=== PATIENT | female | born 1955 | race Caucasian/White ===

== ENCOUNTER → 2017-01-04 | Day surgery (SDC) | payer OTHER ==
[2016-12-11 11:30] VITALS: BMI 37.0
--- NOTE | 2016-12-11 11:59 | PAT Medication Instructions ---
Service Date December 11, 2016. Current Home Medication List Clonazepam (Klonopin), 1 MG PO HS PRN for Sleep Clonazepam (Klonopin), 0.5 TAB PO BID PRN for Anxiety/Agitation Cyclobenzaprine Hcl (Flexeril), 5 MG PO TID PRN for Muscle Spasms Digestive Enzymes (Digestive Support), 1 TAB PO QAM Oxycodone/Acetaminophen 10MG/325MG (Percocet 10MG/325MG), 1 TAB PO Q6H PRN for Pain Pantoprazole (Protonix), 40 MG PO QAM Venlafaxine Hcl (Effexor Extended Rel), 150 MG PO QAM Medication Instructions For Your Scheduled Surgery - Hold the following medications the morning of surgery: Cyclobenzaprine Hcl (Flexeril), 5 MG PO TID PRN for Muscle Spasms Digestive Enzymes (Digestive Support), 1 TAB PO QAM - Take the following medications the morning of surgery with a sip of water OTHERWISE NOTHING TO EAT OR DRINK AFTER MIDNIGHT: Clonazepam (Klonopin), 0.5 TAB PO BID PRN for Anxiety/Agitation Pantoprazole (Protonix), 40 MG PO QAM Venlafaxine Hcl (Effexor Extended Rel), 150 MG PO QAM Oxycodone/Acetaminophen 10MG/325MG (Percocet 10MG/325MG), 1 TAB PO Q6H PRN for Pain (may take if needed up to 4 hours prior to surgery) - Take the following medications as scheduled the night before surgery: Clonazepam (Klonopin), 1 MG PO HS PRN for Sleep Clonazepam (Klonopin), 0.5 TAB PO BID PRN for Anxiety/Agitation Cyclobenzaprine Hcl (Flexeril), 5 MG PO TID PRN for Muscle Spasms Oxycodone/Acetaminophen 10MG/325MG (Percocet 10MG/325MG), 1 TAB PO Q6H PRN for Pain If you have any questions please call us at [phone] or [phone] or [phone]
[2016-12-11 12:00] LABS: BASO % 0.4 %; BASO ABS # 0.02 K/uL (0-0.2); COMPLETE YES; EOS % 4.8 %; HEMATOCRIT 44.1 % (37-47); IG% 0.2 %; LYMPH % 32.1 %; LYMPH ABS # 1.54 K/uL (1.2-3.4); MEAN CELL VOLUME 93.2 fL (80-100); MEAN CORPUSCULAR HEMOGLOBIN 33.4 pg (25-34); MEAN CORPUSCULAR HGB CONC 35.8 g/dl (32-36); MEAN PLATELET VOLUME 10.6 fL (7.4-10.4); MONO % 6.3 %; NEUT % 56.2 %; PLATELET COUNT 156 K/uL (130-400); RED BLOOD COUNT 4.73 M/uL (4.2-5.4)
[2016-12-11 12:15] LABS: URINE APPEARANCE CLEAR (CLEAR); URINE BILIRUBIN NEG (NEG); URINE COLOR YELLOW; URINE NITRITE NEG (NEG); URINE PH 5.5 (4.5-7.5); URINE SPECIFIC GRAVITY 1.014 (1.000-1.030); UROBILINOGEN NEG (NEG)
[2016-12-11 12:25] LABS: MANUAL MICROSCOPIC REQUIRED? NO; REVIEW REQ? NO
[2016-12-11 13:03] LABS: BUN/CREATININE RATIO 23.3 (10-20); CREATININE 0.67 mg/dl (0.60-1.20); POTASSIUM 4.2 mmol/L (3.5-5.1)
--- NOTE | 2017-01-03 14:55 | HISTORY & PHYSICAL EXAMINATION ---
DATE OF ADMISSION: 01/04/2017 SUBJECTIVE CHIEF COMPLAINT: Right shoulder pain. HISTORY OF PRESENT ILLNESS: The patient is a 61-year-old female who is here for right shoulder pain. She presents with pain symptoms as chronic and nontraumatic. They occur constantly. She describes the pain as being aching, sharp and throbbing at times. The patient had a previous MRI that demonstrated a full thickness tear of the rotator cuff. She would like to proceed with a right shoulder rotator cuff repair and subacromial decompression. PAST MEDICAL HISTORY: Significant for acid reflux, arthritis, COPD, depression, fibromyalgia, GERD, and rheumatoid arthritis. PAST SURGICAL HISTORY: Hysterectomy, right ACL reconstruction, , bilateral carpal tunnel release, appendectomy, cholecystectomy, tonsillectomy. SOCIAL HISTORY: She denies alcohol use. She was a 1 pack a day smoker for 35 years. She quit 1 month ago. She denies IV drug use. She lives in a 1-story house. She is currently retired. FAMILY HISTORY: Mom and dad have a history of heart disease. ALLERGIES: CELEBREX, MORPHINE, FENTANYL, TORADOL, ISOSORBIDE, VICODIN, COMPAZINE. MEDICATIONS: Cyclobenzaprine 5 mg 3 times daily, Effexor 150 mg 1 tab daily, Protonix 40 mg 1 tab daily, Klonopin 0.5 mg twice a day and 1 mg at night, Percocet 10/325 1-2 tabs every 4-6 hours as needed for pain, Digestive Advantage 215 million cell chewable tablet. REVIEW OF SYSTEMS: She denies headaches, fevers, chills, double vision, blurry vision, sore throat, cough, chest pain, nausea, vomiting, diarrhea, constipation, numbness, tingling, tired, urinary difficulties, thoughts to harm himself or harm others and depression. She is positive for joint pain and stiffness of her right shoulder. OBJECTIVE PHYSICAL EXAMINATION: GENERAL APPEARANCE: The patient is a 61-year-old female that is sitting in no acute distress. She is well dressed, well nourished. She is awake, alert and oriented x3. VITAL SIGNS: She is 5 foot 6 inches tall, 224 pounds, blood pressure is 130/80. HEAD, EYES, EARS, NOSE, AND THROAT: Normocephalic, atraumatic. Extraocular movements are intact. PERRLA. Mucosa was moist. No septal deviation. NECK: Supple with no lymphadenopathy, no JVD, no thyromegaly. HEART: Regular rate and rhythm with no murmurs or gallops. LUNGS: Wheezing bilaterally, diffuse throughout the lung areas. ABDOMEN: Soft, nontender, nondistended. Normal bowel sounds, no hepatosplenomegaly. EXTREMITIES: Paying particular attention to the right upper extremity, she is able to actively flex to 90 degrees, abduct to 90 degrees, externally rotate to 75 degrees. She has diffuse tenderness throughout the shoulder. NEUROLOGIC EXAMINATION: Cranial nerves II-XII were intact. Pulses were compared bilaterally and were equal. IMAGING: MRI of the right shoulder demonstrated a full thickness tear of the supraspinatus component of the rotator cuff approximately 2 cm from the greater tuberosity insertion. IMPRESSION: Right shoulder rotator cuff tear. PLAN: The patient is scheduled for a right shoulder rotator cuff repair, subacromial decompression. The patient has failed conservative therapies which include cortisone injections, anti-inflammatories and physical therapy. She would like to proceed with a right shoulder rotator cuff repair, subacromial decompression. Risks and benefits were discussed with the patient. They included but not limited to infection, DVT, pain, stiffness, need for revision surgeries, failure to relieve all symptoms, retear, damage to blood vessels, damage to nerves, risks of anesthesia and decreased range of motion were all discussed with the patient and she wishes to proceed. All questions were answered to her satisfaction. No DVT prophylaxis is needed. On discharge she will be going home with self care provided that her oxygenation levels are okay after her operation and pain is well controlled.
[~2017-01-04] VITALS: Ht 165.1 cm; Wt 102.5 kg
[~2017-01-04] MED LIST: ATROPINE SULFATE 0.1 MG/ML 5ML SYR IV PRN; BUPIVACAINE 0.5 % 5 MG/1 ML MPF 30ML VIAL ONE; BUPIVACAINE 0.5 % 5 MG/1 ML PF 10ML VIAL ONE; CEFAZOLIN 2000 MG/60 ML D5W 60 ML IV SCH; CLON1TAB PO; CLON1TAB3 PO; CLONIDINE HCL 100 MCG/ML SYRINGE ONE; CYCL5TAB PO; DEXAMETHASONE SOD INJ 4 MG/ML VIAL ONE; DIGECAP23 PO; DiphenhydrAMINE HCL 50 MG/ML VIAL ONE; EpHEDrine SULFATE INJ 50 MG/ML AMP IV PRN; EpHEDrine SULFATE INJ 50 MG/ML AMP ONE; EpINEphrine HCL INJ 1 MG/ML 5ML SYRINGE ONE; FENTANYL CITRATE INJ 50 MCG/1 ML 2 ML VIAL ONE; KETAMINE HCL INJ 50 MG/ML 10 ML VIAL ONE; LACTATED RINGER'S 1000ML 1,000 ML IV SCH; LIDOCAINE HCL 2% 2 ML VIAL (20MG/ML) ONE; LIDOCAINE/EPINEPHRINE 1% 20 ML VIAL ONE; MEPIVACAINE HCL 1.5% 30 ML VIAL ONE; MIDAZOLAM HCL 1 MG/ML 2ML VIAL ONE; MoRPHine SULFATE 4 MG/ML 1 ML CARP\\VIAL IV PRN; ONDANSETRON INJ 2 MG/ML 2 ML VIAL IV PRN; ONDANSETRON INJ 2 MG/ML 2 ML VIAL ONE; OXYC-106 PO; OXYC-57 PO; OXYCODONE/ACETAMINOPHEN 5-325 TAB ONE; OXYCODONE/ACETAMINOPHEN 5-325 TAB PO PRN; OXYSR10 PO; PANT40TA PO; PHENYLEPHRINE 100MCG/ML 5ML SYR ONE; PROPOFOL IV EMULSION 10 MG/ML 20 ML VIAL IV ONE; SUCCINYLCHOLINE 100MG/5ML SYR IV ONE; VENL150C56 PO
[2017-01-04 13:05] VITALS: BP 149/97; PULSE 80; TEMP 36.7; O2SAT 96; Ht 165.1 cm; Wt 102.5 kg
--- NOTE | 2017-01-04 13:22 | History & Physical Bridge Note ---
H&P Re-Evaluation Bridge Note: I have examined the patient, reviewed the History & Physical and in the interval since the performance of the History & Physical I have noted the following changes of clinical significance: No changes noted
[2017-01-04 13:37] LABS: PARTIAL THROMBOPLASTIN RATIO 1.1; PROTHROMBIN TIME (PATIENT) 11.1 SECONDS (9.0-12.0)
--- NOTE | 2017-01-04 17:55 | Discharge Instructions ---
Discharge Instructions Date of Service January 04, 2017. Admission Reason for Admission: Right Shoulder Rotator Cuff Tear Discharge Discharge Diagnosis / Problem: S/P Right shoulder RCR, SAD, Biceps tenodesis, removal loose bodies Discharge Goals Goal(s): Decrease discomfort, Improve function Activity Recommendations Activity Limitations: per Instructions/Follow-up section . Instructions / Follow-Up Instructions / Follow-Up [facility] DISCHARGE INSTRUCTIONS: ROTATOR CUFF REPAIR SELF CARE INSTRUCTIONS A. You are permitted to loosen your sling/immobilizer to move your elbow, wrist , and hand to prevent stiffness. You should use your well arm (good arm) to assist the operated extremity when trying to raise the arm away from the body, hygiene purposes. Do NOT actively try to use/engage your shoulder muscles in operative arm at this time. You should NOT do overhead activity, lifting, or attempt to reach behind your back. B. You will wait to start start Physical Therapy until you follow up appointment in the office 2 weeks from the date of your surgery due to the size of your rotator cuff tear. C. At 48 hours post-operatively, you may change your dressing. (Leave white steri-strips intact if present). Use band-aids and change daily. You are allowed to shower at this time and get the incision area wet, but DO NOT soak or submerge incision area in water. (No baths, swimming pools, hot tubs) D. Do NOT apply soap or any ointment/lotions directly over incision. E. You may use ice as needed to operative shoulder SPECIAL CARE INSTRUCTIONS: VERY IMPORTANT TO READ AND REVIEW A. There are a few signs you need to watch for after you are home. Call [facility] at [phone] if you experience any of the following: a. Increased severe shoulder pain. Some pain is expected especially when you exercise b. Increased swelling in your shoulder or arm; pain or swelling in either upper extremity. (Note: swelling and stiffness is normal and expected for several weeks post op, depending on type of shoulder surgery you had). c. Any fluid or drainage from the incision; redness of the incision. d. Shortness of breath or chest pain. B. Please call [facility] at [phone] if you have any questions or concerns about your operation or recovery. C. Call your physician if: a. Temperature is greater than 101 degrees (F). b. Pain is not relieved by prescribed pain medications. c. Increase drainage or redness from incision. d. Unanswered questions or concerns. D. Pain Medication: a. You will be prescribed pain medication upon discharge that should last till your first post-operative appointment. b. If you experience nausea and/or skin rash, discontinue this medication and contact our office for an alternative medication. c. Caution- narcotic pain medication can cause constipation. FOLLOW UP VISIT: Please call [facility] at [phone] to schedule a follow up appointment 10-14 days from your surgery date. Current Hospital Diet Patient's current hospital diet: Regular Diet Discharge Diet Recommended Diet: Regular Diet Procedures Procedures Performed: Right shoulder arthroscopy,rotator cuff repair, subacromial decompression, bicep tendotomy, removal loose bodies, extensive debridement. Pending Studies Studies pending at discharge: no Medical Emergencies . Who to Call and When: Medical Emergencies: If at any time you feel your situation is an emergency, please call 911 immediately. . Non-Emergent Contact Non-Emergency issues call your: Surgeon Call Non-Emergent contact if: temperature is above 101.5, your pain is worsening, wound has increased drainage, wound has increased redness . "Provider Documentation" section prepared by Pierre Tate. . VTE Core Measure Inpt VTE Proph given/why not?: Treatment not indicated [place] Drug Monitoring Program Search Results: patient reviewed within database, no issues identified
--- NOTE | 2017-01-04 18:22 | Anesthesiology Progress Note ---
Anesthesia Post Op Note Date & Time January 04, 2017 at 18:22 Vital Signs Pain Intensity: 0 Vital Signs Past 12 Hours Date Time Temp Pulse Resp B/P Pulse Ox O2 Delivery O2 Flow Rate FiO2 01/04/17 18:00 36.4 77 16 125/81 100 Mask 10 01/04/17 17:50 36.4 70 16 136/72 100 Mask 10 01/04/17 17:43 36.4 72 16 157/65 100 Mask 10 01/04/17 13:05 36.7 80 22 149/97 96 Room Air Notes Mental Status: alert / awake / arousable, participated in evaluation Pt Amnestic to Procedure: Yes Nausea / Vomiting: adequately controlled Pain: adequately controlled Airway Patency, RR, SpO2: stable & adequate BP & HR: stable & adequate Hydration State: stable & adequate Anesthetic Complications: no major complications apparent
[2017-01-04 18:32] VITALS: BP 140/90; PULSE 71; TEMP 36.6; O2SAT 94
[2017-01-04 19:00] VITALS: BP 144/78; PULSE 74; O2SAT 94
[2017-01-04 19:30] VITALS: BP 171/79; PULSE 65; TEMP 36.6; O2SAT 95
--- NOTE | 2017-02-04 10:36 | OPERATIVE REPORT ---
DATE OF OPERATION: 01/04/2017 PREOPERATIVE DIAGNOSIS: Right shoulder rotator cuff tear, impingement, biceps tear, labral tear, synovitis. POSTOPERATIVE DIAGNOSIS: Same plus loose bodies. PROCEDURES: Right shoulder rotator cuff repair, subacromial decompression, biceps tenotomy, extensive debridement and removal of loose bodies. SURGEON: Dr. Chapa. ACETYLENE BURNER: Pierre Tate PA-C who was necessary for assistance of procedure with positioning, prepping, draping, retraction, suture passage and closure. ANESTHESIA: General endotracheal anesthesia with interscalene block. SPECIMENS: None. COMPLICATIONS: None. ESTIMATED BLOOD LOSS: Minimal. INDICATIONS: The patient is a 61-year-old female with long-standing pain in the right shoulder. MRI demonstrated tear of the rotator cuff. She previously failed conservative measures and she wished to proceed with arthroscopy. Risks, benefits, and alternatives of surgery including but not limited to infection, DVT, pain, stiffness, need for further surgery, failure to relieve all symptoms, damage to blood vessels, damage to nerves, risks of anesthesia were discussed with the patient and she wished to proceed. OPERATION AND FINDINGS: PROCEDURE: The patient was identified, laterality was confirmed and marked. She received a preoperative antibiotic as well as interscalene block. She was transferred to the operating room, placed in supine position, induced with general endotracheal. She was then safely transferred to lateral decubitus position, secured by matias bag and axillary roll was placed. All pressure points were well padded. Limb was placed in 10 pounds of lateral traction and then prepped and draped in usual sterile manner with ChloraPrep. I made a standard posterior viewing portal made through a stab incision, bluntly entered the glenohumeral joint and under spinal localization established anterior superior lateral portal. She had degenerative tearing of the anterior, superior, and posterior aspect of the glenoid labrum. This was debrided back to a stable base utilizing a shaver. She had significant tearing of the long head of the biceps tendon constituting greater than 50% thickness of the tendon. The tendon was released utilizing a cautery wand. She had several loose bodies within the glenohumeral joint, largest measuring 4 mm x 5 mm. These were removed with a combination of shaver as well as an arthroscopic grasper. She had significant degenerative change of the cartilage of the glenoid and some degenerative change of cartilage of the humeral head. All the instrumentation was removed from the joint. I then entered the subacromial space and established a lateral portal. She had full thickness rotator cuff tear in the region of the supraspinatus. I debrided the tissue back to good healthy tissue and debrided the footprint to establish a bleeding response. Then through a stab incision, I placed a 5.5 mm Healicoil suture anchor. She had relatively soft bone. The sutures were passed in a horizontal mattress fashion with a scorpion and then tied from posterior to anterior utilizing sliding Blair knots reinforced with 3 half hitches on alternating posts. I then took one suture limb from each knot cutting the remaining suture limbs placed into a 5.5 mm footprint anchor that I placed anterolaterally completing a double row construct. I then released the CA ligament with cautery and performed a subacromial decompression, first removing the anterior inferior spur from laterally and then completing a cutting block technique. All the instrumentation was then removed from the shoulder. Portal sites were closed with nylon. Sterile dressing was applied. All needle and sponge counts were correct at the end of the procedure. The patient was transferred to the PACU in stable condition without apparent complication. Plan will be to hold physical therapy for 2 weeks due to her poor tissue quality. I attest to the content of the Intraoperative Record and any orders documented therein. Any exception s are noted below.
== END | disposition home or self-care (01) ==
LOC: C.ACU 12:46
PROVIDERS: ATTEND Orthopaedic Surgery
DX: M75.101 Unspecified rotator cuff tear or rupture of right shoulder, not specified as traumatic (principal); M25.811 Other specified joint disorders, right shoulder; S46.201A Unspecified injury of muscle, fascia and tendon of other parts of biceps, right arm, initial encounter; M65.811 Other synovitis and tenosynovitis, right shoulder; X58.XXXA Exposure to other specified factors, initial encounter; J44.9 Chronic obstructive pulmonary disease, unspecified; M79.7 Fibromyalgia; F32.9 Major depressive disorder, single episode, unspecified; F17.200 Nicotine dependence, unspecified, uncomplicated; E66.9 Obesity, unspecified; Z90.710 Acquired absence of both cervix and uterus; Z98.890 Other specified postprocedural states; Z90.89 Acquired absence of other organs; Z90.49 Acquired absence of other specified parts of digestive tract; Z88.5 Allergy status to narcotic agent; Z68.37 Body mass index [BMI] 37.0-37.9, adult; Z82.49 Family history of ischemic heart disease and other diseases of the circulatory system

== ENCOUNTER → 2017-05-01 | Outpatient (CLI) | payer OTHER ==
[~2017-05-01] MED LIST changes: -ATROPINE SULFATE 0.1 MG/ML 5ML SYR IV PRN; -BUPIVACAINE 0.5 % 5 MG/1 ML MPF 30ML VIAL ONE; -BUPIVACAINE 0.5 % 5 MG/1 ML PF 10ML VIAL ONE; -CEFAZOLIN 2000 MG/60 ML D5W 60 ML IV SCH; -CLONIDINE HCL 100 MCG/ML SYRINGE ONE; -DEXAMETHASONE SOD INJ 4 MG/ML VIAL ONE; -DiphenhydrAMINE HCL 50 MG/ML VIAL ONE; -EpHEDrine SULFATE INJ 50 MG/ML AMP IV PRN; -EpHEDrine SULFATE INJ 50 MG/ML AMP ONE; -EpINEphrine HCL INJ 1 MG/ML 5ML SYRINGE ONE; -FENTANYL CITRATE INJ 50 MCG/1 ML 2 ML VIAL ONE; -KETAMINE HCL INJ 50 MG/ML 10 ML VIAL ONE; -LACTATED RINGER'S 1000ML 1,000 ML IV SCH; -LIDOCAINE HCL 2% 2 ML VIAL (20MG/ML) ONE; -LIDOCAINE/EPINEPHRINE 1% 20 ML VIAL ONE; -MEPIVACAINE HCL 1.5% 30 ML VIAL ONE; -MIDAZOLAM HCL 1 MG/ML 2ML VIAL ONE; -MoRPHine SULFATE 4 MG/ML 1 ML CARP\\VIAL IV PRN; -ONDANSETRON INJ 2 MG/ML 2 ML VIAL IV PRN; -ONDANSETRON INJ 2 MG/ML 2 ML VIAL ONE; -OXYC-106 PO; -OXYCODONE/ACETAMINOPHEN 5-325 TAB ONE; -OXYCODONE/ACETAMINOPHEN 5-325 TAB PO PRN; -PHENYLEPHRINE 100MCG/ML 5ML SYR ONE; -PROPOFOL IV EMULSION 10 MG/ML 20 ML VIAL IV ONE; -SUCCINYLCHOLINE 100MG/5ML SYR IV ONE
[2017-05-06 10:17] LABS: URCREATININE 44.7 MG/DL (>/= 20)
--- NOTE | 2017-05-10 10:59 | CODING QUERY MEDICAL NECESSITY ---
CQSUPPORTING DIAGNOSIS NEEDED A supporting diagnosis is required for the test/procedure performed on this patient in order for us to be reimbursed by the patient's insurance. Please provide a supporting diagnosis for the following test/procedure listed below next to the test name along with your signature. *If there is no additional diagnosis for this patient that would support the following test/procedure please document that below next to the test/procedure. Test(s)/Procedure(s) that require a supporting diagnosis: DOS 05/01/17 CONTROLLED SUBSTANCE (TOXICOLOGY PROFILE) Provider Signature: Date: Thank you Sandra Chamorro Health Information Management Once completed, please kindly fax back to [phone] For questions please call [phone]
== END | disposition home or self-care (01) ==
LOC: C.LABMFLN 09:05
PROVIDERS: ATTEND Family Medicine
DX: G89.4 Chronic pain syndrome (principal); R10.2 Pelvic and perineal pain; N76.0 Acute vaginitis; M51.36 Other intervertebral disc degeneration, lumbar region

== ENCOUNTER → 2017-11-08 | Outpatient (CLI) | payer OTHER ==
[~2017-11-08] MED LIST changes: -OXYC-57 PO
== END | disposition home or self-care (01) ==
LOC: C.LABMFLN 18:02
PROVIDERS: ATTEND Family Medicine
DX: B37.3 Candidiasis of vulva and vagina (principal)

== ENCOUNTER → 2018-04-04 | Day surgery (SDC) | payer OTHER ==
[2018-04-03 08:50] VITALS: BMI 32.0
[~2018-04-04] VITALS: Ht 165.1 cm; Wt 89.1 kg
[~2018-04-04] MED LIST changes: +ATROPINE SULFATE 0.1 MG/ML 5ML SYR IV PRN; +BUSP15TA70 PO; -CLON1TAB PO; +CLON1TAB10 PO; -CLON1TAB3 PO; -DIGECAP23 PO; +EpHEDrine SULFATE INJ 50 MG/ML AMP IV PRN; +FENTANYL CITRATE INJ 50 MCG/1 ML 2 ML VIAL ONE; +FLUMAZENIL 0.1 MG/1 ML 10 ML VIAL IV PRN; +HYDROmorphone INJ 1 MG/ML SYR ONE; +INDOMETHACIN 50 MG SUPP PR ONE; +LABETALOL HCL IV 5 MG/ML 20ML IV PRN; +LACTATED RINGER'S 1000ML 1,000 ML IV SCH; +LIDOCAINE HCL 2% 2 ML VIAL (20MG/ML) ONE; +METO25TA4 PO; +MIDAZOLAM HCL 1 MG/ML 2ML VIAL ONE; +MISCCAP80 PO; +NALOXONE HCL 0.4 MG/1 ML VIAL/CARP IV PRN; +NURSING VERBAL MED ORDER ONE; +ONDANSETRON INJ 2 MG/ML 2 ML VIAL IV PRN; +ONDANSETRON INJ 2 MG/ML 2 ML VIAL ONE; +OXYC-59 PO; -OXYSR10 PO; +PROPOFOL IV EMULSION 10 MG/ML 20 ML VIAL ONE; +SUCCINYLCHOLINE CHLORIDE 20 MG/ML 10 ML VIAL IV ONE
[2018-04-04 10:38] VITALS: BP 142/88; PULSE 73; TEMP 37.3; O2SAT 96; Ht 165.1 cm; Wt 89.1 kg
--- NOTE | 2018-04-04 11:52 | Endo History and Physical ---
History & Physical Date of Service: Apr 04, 2018. Chief Complaint: Common bile duct stones Referring Physician: History of Present Illness The patient presents for ERCP today. She has several year history of intermittent abdominal pain without an explanation until recently when she had an endoscopic ultrasound which revealed choledocholithiasis. She presents today for ERCP with biliary enterotomy and gallstone extraction Past Surgical History Hx Cardiac Surgery: Yes (CARDIAC CATH (DIAGNOSITC)NO STENTS-2015) Hx Abdominal Surgery: Yes (, APPENECTOMY, DEVANG, HYSTERECTOMY) Hx Post-Op Nausea and Vomiting: No Hx Cancer Surgery: No Hx Thoracic Surgery: No Hx Orthopedic: Yes (B/L CTR, LEFT ELBOW ULNAR NERVE SURGERY, LEFT KNEE REPAIR) Hx Urinary Tract Surgery: No Social History Smoking Status: Current Every Day Smoker Hx Substance Use: No Hx Alcohol Use: No Allergies Coded Allergies: Celecoxib (Unverified Allergy, Unknown, Itching, 04/04/18) Fentanyl (Verified Allergy, Unknown, NAUSEA, 04/04/18) Hydrocodone (Unverified Allergy, Unknown, Nausea, 04/04/18) Isosorbide Nitrate (Unverified Allergy, Unknown, Headache, 04/04/18) Ketorolac Tromethamine (Unverified Allergy, Unknown, Nausea, 04/04/18) Morphine (Unverified Allergy, Unknown, Itching, 04/04/18) Prochlorperazine (Unverified Allergy, Unknown, Restlessness, 04/04/18) Current Medications Reported Home Medications Medications Dose Route/Sig Max Daily Dose Days Date Category Dose Instructions Probiotic (Probiotic Product) 1 Cap Cap 1 Tab PO QAM 04/03/18 Reported Percocet 10-325 mg (Oxycodone W/ Acetaminophen) 1 Tab Tab 1 Tab PO Q6H PRN 04/03/18 Reported Toprol Xl (Metoprolol Succinate) 25 Mg Tabcr 25 Mg PO QAM 04/03/18 Reported Buspar (Buspirone Hcl) 15 Mg Tab 7.5 Mg PO BID 04/03/18 Reported Klonopin (Clonazepam) 1 Mg Tab 1 Mg PO HS 11/01/15 Reported Protonix (Pantoprazole Sodium) 40 Mg Tab 40 Mg PO QAM 11/01/15 Reported Effexor Extended Rel (Venlafaxine Hcl) 150 Mg Cap 150 Mg PO QAM 11/01/15 Reported Flexeril (Cyclobenzaprine Hcl) 5 Mg Tab 5 Mg PO TID PRN 11/01/15 Reported PRN Vital Signs Weight (Kilograms): 89.09 Height (Feet): 5 Height (Inches): 5 Date Time Temp Pulse Resp B/P (MAP) Pulse Ox O2 Delivery O2 Flow Rate FiO2 04/04/18 10:38 37.3 73 18 142/88 (106) 96 Room Air Physical Exam General Appearance: no apparent distress Respiratory/Chest: Auscultation: deminished air movement Cardiovascular: Heart Auscultation: RRR Abdomen: Inspection & Palpation: soft, RUQ tenderness Assessment and Plan Patient for ERCP today for a history of choledocholithiasis seen on recent endoscopic ultrasound. We have discussed the risks and benefits of ERCP to include bleeding, infection, perforation, pancreatitis, failed biliary cannulation and the need for follow-up studies.
--- NOTE | 2018-04-04 12:42 | [facility] Post Operative Brief Note ---
Immediate Operative Summary Operative Date Apr 04, 2018. Pre-Operative Diagnosis Common bile duct stones, choledocholithiasis Post-Operative Diagnosis Common bile duct stones, choledocholithiasis Procedure(s) Performed Endoscopic Retrograde Cholangiopancreatogram Biliary sphincterotomy Gallstone extraction Surgeon Dr. Sarah Olmos Catalytic Case Operator Surgeon(s) None Estimated Blood Loss 0 ml Findings Consistent with Post-Op Diagnosis Specimens None Drains None Anesthesia Type General Complication(s) none Disposition Accompanied Pt To Recover: no Disposition: Recovery Room / PACU
--- NOTE | 2018-04-04 12:45 | Discharge Instructions ---
Endoscopy Patient Instructions Date / Procedure(s) Performed Apr 04, 2018. ERCP Allergy Information Coded Allergies: Celecoxib (Unverified Allergy, Unknown, Itching, 04/04/18) Fentanyl (Verified Allergy, Unknown, NAUSEA, 04/04/18) Hydrocodone (Unverified Allergy, Unknown, Nausea, 04/04/18) Isosorbide Nitrate (Unverified Allergy, Unknown, Headache, 04/04/18) Ketorolac Tromethamine (Unverified Allergy, Unknown, Nausea, 04/04/18) Morphine (Unverified Allergy, Unknown, Itching, 04/04/18) Prochlorperazine (Unverified Allergy, Unknown, Restlessness, 04/04/18) Discharge Date / Findings Apr 04, 2018. Common bile duct stones Medication Instructions Reported Home Medications Medications Dose Route/Sig Max Daily Dose Days Date Category Dose Instructions Probiotic (Probiotic Product) 1 Cap Cap 1 Tab PO QAM 04/03/18 Reported Percocet 10-325 mg (Oxycodone W/ Acetaminophen) 1 Tab Tab 1 Tab PO Q6H PRN 04/03/18 Reported Toprol Xl (Metoprolol Succinate) 25 Mg Tabcr 25 Mg PO QAM 04/03/18 Reported Buspar (Buspirone Hcl) 15 Mg Tab 7.5 Mg PO BID 04/03/18 Reported Klonopin (Clonazepam) 1 Mg Tab 1 Mg PO HS 11/01/15 Reported Protonix (Pantoprazole Sodium) 40 Mg Tab 40 Mg PO QAM 11/01/15 Reported Effexor Extended Rel (Venlafaxine Hcl) 150 Mg Cap 150 Mg PO QAM 11/01/15 Reported Flexeril (Cyclobenzaprine Hcl) 5 Mg Tab 5 Mg PO TID PRN 11/01/15 Reported PRN Provider Instructions Activity Restrictions - No exercising or heavy lifting for 24 hours. - Do not drink alcohol the day of the procedure. - Do not drive a car or operate machinery until the day after the procedure. - Do not make any important decisions or sign important papers in 24 hours after the procedure. Following Day: - Return to full activity which may include returning to work/school. Diet Clear liquid diet today Regular diet on 04/05/18 Treatment For Common After Affects For mild abdominal pain, bloating, or excessive gas: - Rest - Eat lightly - Lie on right side Follow-Up Information Follow-up with Shayan and Dr. Isaac as previously scheduled Repeat liver studies in 2 weeks Avoid NSAIDS (motrin, ibuprofen, aleeve) for 1 week Anesthesia Information What You Should Know You have had a procedure that required some medicine to reduce anxiety and discomfort. This treatment is called moderate sedation. After receiving the treatment, you may be sleepy, but you will be able to breathe on your own. The effects of the treatment may last for several hours. Follow these instructions along with Activity/Diet recommendations noted above: * Do NOT do anything where dizziness or clumsiness would be dangerous. * Rest quietly at home today, then you can be up and about tomorrow. * Have a responsible person stay with you the rest of today. * You may have had an I.V. today. If so, you may take the dressing off later today. Recommendations Call your doctor if: * Trouble breathing * Continuous vomiting for more than 24 hours * Temperature above 101 degrees * Severe abdominal pain or bloating * Pain not relieved by pain medicine ordered * There is increased drainage or redness from any incision * A large amount of rectal bleeding greater than 2-3 tablespoons. (If you had a polyp/s removed or have hemorrhoids, a small amount of blood - from the rectum is to be expected.) * You have any unanswered questions or concerns. IN THE EVENT OF A SERIOUS EMERGENCY, GO TO THE NEAREST EMERGENCY ROOM Your discharge instructions were prepared by provider Sarah Olmos. Patient Instructions Signature Page Martha Ott Patient (or Guardian) Signature/Date: I have read and understand the instructions given to me by my caregivers. Caregiver/RN/Doctor Signature/Date: The above-named patient and/or guardian has received patient instructions on this date. + Original Patient Signature Page (only) stays with chart. Please make copy for patient.
--- NOTE | 2018-04-04 12:57 | DIAGNOSTIC IMAGING REPORT ---
INTRAOPERATIVE RADIOGRAPHS CLINICAL HISTORY: ERCP. Fluoroscopy time: 149 seconds. FINDINGS: 10 spot fluoroscopic images of the right upper quadrant are presented. No prior studies are available for comparison at the time of dictation. Cholecystectomy clips are noted in the right upper quadrant. A common bile duct stent appears to be in place. There is cannulation the common bile duct which appears distended. There is only mild central intrahepatic biliary ductal dilatation. A balloon sweep of the common bile duct is performed. IMPRESSION: Intraoperative ERCP images as above. See operative report for detailed findings. Electronically signed by: Ishan aHndley M.D. 04/04/2018 12:55 PM Dictated Date/Time: 04/04/2018 12:53 PM
--- NOTE | 2018-04-04 13:05 | GI REPORT ---
Patient Name: Martha Ott Procedure Date: 04/04/2018 12:00 PM Date of : 1955 Admit Type: Outpatient Age: 62 Gender: Female Attending MD: Sarah Olmos DO Procedure: ERCP Providers: Sarah Olmos DO Referring MD: Talia Garcia NP Indications: Abdominal pain of suspected biliary origin, Abnormal endoscopic ultrasound of the biliary system, Abnormal liver function test Medicines: General Anesthesia Complications: No immediate complications. Estimated blood loss: Minimal. Estimated Blood Loss: Estimated blood loss was minimal. Procedure: Pre-Anesthesia Assessment: - Prior to the procedure, a History and Physical was performed, and patient medications, allergies and sensitivities were reviewed. The patient's tolerance of previous anesthesia was reviewed. - The risks and benefits of the procedure and the sedation options and risks were discussed with the patient. All questions were answered and informed consent was obtained. - Patient identification and proposed procedure were verified prior to the procedure by the physician, the nurse and the deputy director. The procedure was verified in the procedure room. - Pre-procedure physical examination revealed no contraindications to sedation. - ASA Grade Assessment: III - A patient with severe systemic disease. - After reviewing the risks and benefits, the patient was deemed in satisfactory condition to undergo the procedure. - The anesthesia plan was to use general anesthesia. - Immediately prior to administration of medications, the patient was re-assessed for adequacy to receive sedatives. - The heart rate, respiratory rate, oxygen saturations, blood pressure, adequacy of pulmonary ventilation, and response to care were monitored throughout the procedure. - The physical status of the patient was re-assessed after the procedure. After obtaining informed consent, the scope was passed under direct vision. Throughout the procedure, the patient's blood pressure, pulse, and oxygen saturations were monitored continuously. The scope was introduced through the mouth, and advanced to the duodenum and used to inject contrast into the bile duct. The ERCP was accomplished without difficulty. The patient tolerated the procedure well. Findings: A lumber buyer film of the abdomen was obtained. Surgical clips, consistent with a previous cholecystectomy, were seen in the area of the right upper quadrant of the abdomen. The esophagus was successfully intubated under direct vision without detailed examination of the pharynx, larynx, and associated structures, and upper GI tract. The upper GI tract was grossly normal. The major papilla was normal. The bile duct was deeply cannulated with the short-nosed traction sphincterotome (Omni 35) and 0.035 in Acrobat 2 angled guidewire after several attempts (unable to cannulate with a 0.035 in MET2). Contrast was injected into the biliary tree (the pancreatic duct was not cannulated or injected). I personally interpreted the bile duct images. Contrast extended to the entire biliary tree. A cholecystectomy had been performed. The biliary orifice was stenotic. This appeared benign. The lower third of the main bile duct contained filling defect(s). Biliary sphincterotomy was made with a traction (standard) sphincterotome using ERBE electrocautery. There was no post-sphincterotomy bleeding. The biliary tree was swept with an 8.5 to 15 mm balloon starting at the bifurcation several times. One pale pimented stone was removed. No stones remained on occlusion cholangiogram. Indomethacin 100 mg was given via suppository to decrease the risk of post-ERCP pancreatitis (PEP). Impression: - The major papilla appeared normal. - Biliary papillary stenosis, benign. . - The patient has had a cholecystectomy. - Choledocholithiasis was found. Complete removal was accomplished by biliary sphincterotomy and balloon extraction. - Indomethacin given to decrease risk of post-ERCP pancreatitis. Recommendation: - Discharge patient to home (ambulatory). - Clear liquid diet today.. - Observe patient's clinical course following today's ERCP with therapeutic intervention. - Return to GI clinic in 3 months (Ms. Downey). Sarah Olmos D.O. Sarah Olmos, 04/04/2018 1:05:16 PM This report has been signed electronically. Note Initiated On: 04/04/2018 12:00 PM Number of Addenda: 0 I attest to the content of the Intraoperative Record and orders documented therein, exceptions below {[id number]}
[2018-04-04] MEDS: FENTANYL CITRATE INJ 50 MCG/1 ML 2 ML VIAL IV PRN ×3 (13:07→13:17)
[2018-04-04] MEDS: HYDROmorphone INJ 0.5 MG/0.5 ML SYR IV PRN ×4 (13:27→13:44)
--- NOTE | 2018-04-04 14:08 | Anesthesiology Progress Note ---
Anesthesia Post Op Note Date & Time Apr 04, 2018 at 14:08 Vital Signs Pain Intensity: 4 Vital Signs Past 12 Hours Date Time Temp Pulse Resp B/P (MAP) Pulse Ox O2 Delivery O2 Flow Rate FiO2 04/04/18 14:05 57 18 141/75 94 Room Air 04/04/18 13:55 36.1 66 13 141/75 96 Room Air 04/04/18 13:45 60 16 129/80 96 Room Air 04/04/18 13:35 55 17 133/86 96 Room Air 04/04/18 13:25 58 18 134/82 93 Room Air 04/04/18 13:15 59 14 159/97 94 Room Air 04/04/18 13:05 60 22 177/101 100 Oxymask 10 04/04/18 12:55 61 18 182/101 99 Oxymask 10 04/04/18 12:48 36.6 74 10 166/96 99 Oxymask 10 04/04/18 10:38 37.3 73 18 142/88 (106) 96 Room Air Notes Mental Status: alert / awake / arousable, participated in evaluation Pt Amnestic to Procedure: Yes Nausea / Vomiting: adequately controlled Pain: adequately controlled Airway Patency, RR, SpO2: stable & adequate BP & HR: stable & adequate Hydration State: stable & adequate Anesthetic Complications: no major complications apparent
[2018-04-04 14:12] VITALS: BP 159/88; PULSE 60; TEMP 36.9; O2SAT 94
[2018-04-04 14:42] VITALS: BP 175/85; PULSE 58; TEMP 36.6; O2SAT 96
== END | disposition home or self-care (01) ==
LOC: C.ACU 10:00
PROVIDERS: ATTEND Internal Medicine Gastroenterology
DX: K80.50 Calculus of bile duct without cholangitis or cholecystitis without obstruction (principal); F17.200 Nicotine dependence, unspecified, uncomplicated; Z88.8 Allergy status to other drugs, medicaments and biological substances; Z88.5 Allergy status to narcotic agent